=== PATIENT | male | born 1990 | race American Indian/Alaskan Native ===

== ENCOUNTER 2019-01-11 12:20 | Emergency (ER) | payer MEDICAID, MEDICARE ==
--- NOTE | 2019-01-11 12:27 | Emergency Department Report ---
Blank Doc - Documentation Documentation: This is a 28-year-old male that presents with syncopal episode and right late ral rib pain. Stated that this morning he got out of bed and had a syncopal episode. This initial assessment/diagnostic orders/clinical plan/treatment(s) is/are subject to change based on patient's health status, clinical progression and re- assessment by fellow clinical providers in the ED. Further treatment and workup at subsequent clinical providers discretion. Patient/guardians urged not to elope from the ED as their condition may be serious if not clinically assessed and managed. Initial orders include: 1- Patient sent to [facility] for further evaluation and treatment 2- labs 3- xray 4- ekg 5- Ct head
[2019-01-11 12:28] VITALS: BP 107/66
[2019-01-11] MEDS ORDERED: TORADOL IM ONE (13:18)
[2019-01-11 13:20] LABS: Basophils % (Auto) 0.2 % (0.0-1.8); Eosinophils # (Auto) 0.2 K/mm3 (0.0-0.4); Eosinophils % (Auto) 1.9 % (0.0-4.3); Hematocrit 33.6 % (35.5-45.6); Hemoglobin 11.4 gm/dl (11.8-15.2); Lymphocytes % (Auto) 24.7 % (13.4-35.0); Mean Corpuscular HGB Conc 34 % (32-34); Mean Corpuscular Volume 92 fl (84-94); Monocytes # (Auto) 0.6 K/mm3 (0.0-0.8); Monocytes % (Auto) 7.6 % (0.0-7.3); Platelet Count 285 K/mm3 (140-440); Red Blood Count 3.67 M/mm3 (3.65-5.03); Red Cell Distribution Width 14.9 % (13.2-15.2)
--- NOTE | 2019-01-11 13:20 | XRay Report ---
PROCEDURE: XR RIBS UNI W PA CHEST 3+V RT TECHNIQUE: PA chest; 4 views ribs HISTORY: right lateral rib pain wth sob COMPARISONS: None FINDINGS: Trachea midline. Heart size normal. No pneumothorax. No sizable effusion. No acute airspace disease. Mineralization unremarkable. No acute rib fracture identified. IMPRESSION: No acute pulmonary disease. No acute fracture. This document is electronically signed by Vj Romeo MD., January 11 2019 01:18:45 PM ET
--- NOTE | 2019-01-11 13:25 | Emergency Department Report ---
ED General Adult HPI - General Chief complaint: Weakness Stated complaint: PASSED OUT/PAIN IN RIBS/JOSE Time Seen by Provider: 01/11/19 12:25 Source: patient Mode of arrival: Ambulatory Limitations: No Limitations - History of Present Illness Initial comments: Patient is 28 years old male with no significant past medical history. Patient presented to the ER complaining of right sided lower chest pain after he fell last night in the bathroom. Patient stated that he came from work he slept for 2 hours then he went to the bathroom when he became dizzy. Patient stated that he is back to his baseline. Patient denied any shortness of breath but he st ated that pain increases when he takes a deep breath. Patient denied any fever or chills. Severity scale (0 -10): 10 - Related Data Allergies Allergy/AdvReac Type Severity Reaction Status Date / Time No Known Allergies Allergy Unverified 01/11/19 12:22 ED Review of Systems ROS: Stated complaint: PASSED OUT/PAIN IN RIBS/JOSE Other details as noted in HPI Comment: All other systems reviewed and negative Constitutional: denies: chills, fever Respiratory: denies: orthopnea, shortness of breath, SOB with exertion, SOB at rest, wheezing Cardiovascular: chest pain. denies: palpitations, dyspnea on exertion Gastrointestinal: denies: abdominal pain, nausea, vomiting, diarrhea, constipation, hematemesis, hematochezia Musculoskeletal: denies: back pain Neurological: denies: headache, weakness ED Past Medical Hx - Past Medical History Previous Medical History?: No - Surgical History Past Surgical History?: No - Social History Smoking Status: Current Every Day Smoker Substance Use Type: Marijuana ED Physical Exam - General Limitations: No Limitations General appearance: alert, in no apparent distress - Head Head exam: Present: atraumatic, normocephalic, normal inspection - Eye Eye exam: Present: normal appearance, PERRL - ENT ENT exam: Present: normal exam, normal orophraynx, mucous membranes moist - Neck Neck exam: Present: normal inspection, full ROM. Absent: tenderness, meningism us - Respiratory Respiratory exam: Present: normal lung sounds bilaterally, chest wall tenderness. Absent: respiratory distress, wheezes, rales, rhonchi, accessory muscle use, decreased breath sounds, prolonged expiratory - Cardiovascular Cardiovascular Exam: Present: regular rate, normal rhythm, normal heart sounds - GI/Abdominal GI/Abdominal exam: Present: soft, normal bowel sounds. Absent: distended, tenderness, guarding, rebound, rigid, organomegaly, mass, bruit, pulsatile mass - Extremities Exam Extremities exam: Present: normal inspection, full ROM, normal capillary refill. Absent: pedal edema, calf tenderness - Back Exam Back exam: Present: normal inspection, full ROM. Absent: CVA tenderness (R), CVA tenderness (L), muscle spasm, paraspinal tenderness, vertebral tenderness, rash noted - Neurological Exam Neurological exam: Present: alert, oriented X3, CN II-XII intact, normal gait, reflexes normal - Skin Skin exam: Present: warm, intact, normal color ED Course Vital Signs 01/11/19 12:26 Temperature 97.7 F Pulse Rate 63 Respiratory 18 Rate Blood Pressure 107/66 O2 Sat by Pulse 99 Oximetry ED Medical Decision Making - Lab Data Result diagrams: 01/11/19 13:07 01/11/19 13:07 - Radiology Data Radiology results: report reviewed Referring Physician: DEYANIRA SWANN Patient Name: BIMAL MONTERO Date of : 1990 Sex: Male Report Date: 2019-01-11 Report Status: Finalized Findings [facility] [address] [place] [address] Cat Scan Report Signed Patient: BIMAL MONTERO MR#: [id number] : 1990 Acct:[id number] Age/Sex: 28 / M ADM Date: 01/11/19 Loc: ED Attending Dr: Ordering Physician: DEYANIRA SWANN NP Date of Service: 01/11/19 Procedure(s): CT head/brain wo con Accession Number(s): [id number] cc: DEYANIRA SWANN NP PROCEDURE: CT HEAD/BRAIN WO CON TECHNIQUE: Axial images obtained brain without intravenous contrast. HISTORY: syncope COMPARISONS: None FINDINGS: No extra-axial fluid collection. No midline shift. No cisternal effacement. Ventricular system is unremarkable. Pruitt-white interface maintained. No parenchymal hemorrhage. No suspect hyperdensity of the middle cerebral arteries. Ethmoid sinuses and frontal sinuses demonstrate mucosal thickening. Mucous retention cyst or polyp left sphenoid sinus. No air-fluid level. Calvarium demonstrates no acute defect. IMPRESSION: No acute intracranial process.. This document is electronically signed by jV Meier MD., January 11 2019 01:51:24 PM ET Transcribed By: HJ Dictated By: VJ MEIER MD Electronically Authenticated By: VJ MEIER MD Signed Date/Time: 01/11/19 1353 DD/ 1345 TD/TT: 01/11/19 1345 - Medical Decision Making Patient is 28 years old male with no significant past medical history. Patient presented to the ER complaining of right sided lower chest pain after he fell last night in the bathroom. Patient stated that he came from work he slept for 2 hours then he went to the bathroom when he became dizzy. Patient stated that he is back to his baseline. Patient denied any shortness of breath but he stated that pain increases when he takes a deep breath. Patient denied any fever or chills. Patient received Toradol and stated that he is feeling much better now. EKG is unremarkable except for sinus bradycardia. Labs reviewed and is negative. CT brain is negative for acute findings. Chest x-ray with right rib detail is negative for acute finding. I advised the patient to follow-up with his primary care physician in the next 2-3 days and return to the ER if symptoms are not improved. Critical care attestation.: If time is entered above; I have spent that time in minutes in the direct care of this critically ill patient, excluding procedure time. ED Disposition Clinical Impression: Syncope, Contusion of chest Disposition: DC-01 TO HOME OR SELFCARE Is pt being admited?: No Condition: Stable Instructions: Syncope (ED), Contusion in Adults (ED) Referrals: TATI URIOSTEGUI MD [Primary Care Provider] - 3-5 Days
[2019-01-11 13:49] LABS: Creatine Kinase MB 1.6 ng/mL (0.0-4.0)
[2019-01-11 13:52] LABS: Alanine Aminotransferase 9 units/L (7-56); Albumin 3.9 g/dL (3.9-5); BUN/Creatinine Ratio 12; Blood Urea Nitrogen 6 mg/dL (9-20); Calcium 8.8 mg/dL (8.4-10.2); Hemolysis Index 9
--- NOTE | 2019-01-11 13:53 | Cat Scan Report ---
PROCEDURE: CT HEAD/BRAIN WO CON TECHNIQUE: Axial images obtained brain without intravenous contrast. HISTORY: syncope COMPARISONS: None FINDINGS: No extra-axial fluid collection. No midline shift. No cisternal effacement. Ventricular system is unr emarkable. Pruitt-white interface maintained. No parenchymal hemorrhage. No suspect hyperdensity of the middle cerebral arteries. Ethmoid sinuses and frontal sinuses demonstrate mucosal thickening. Mucous retention cyst or polyp left sphenoid sinus. No air-fluid level. Calvarium demonstrates no acute defect. IMPRESSION: No acute intracranial process.. This document is electronically signed by Vj Romeo MD., January 11 2019 01:51:24 PM ET
== END 2019-01-11 14:33 | disposition home or self-care (01) ==
LOC: ED 12:20
DX: S20.211A Contusion of right front wall of thorax, initial encounter (principal); R42 Dizziness and giddiness; R55 Syncope and collapse; F17.200 Nicotine dependence, unspecified, uncomplicated; F12.10 Cannabis abuse, uncomplicated; W18.2XXA Fall in (into) shower or empty bathtub, initial encounter; Y93.89 Activity, other specified; Y92.002 Bathroom of unspecified non-institutional (private) residence as the place of occurrence of the external cause; Y99.8 Other external cause status
CPT/HCPCS: 36415; 70450; 71101; 80053; 82550; 82553; 84484; 85025; 93005; 93010; 96372; 99285; J1885

== ENCOUNTER 2019-06-25 00:25 | Emergency (ER) | payer MEDICAID, OTHER ==
[2019-06-25 00:50] VITALS: BP 115/72
--- NOTE | 2019-06-25 01:30 | XRay Report ---
RIGHT SHOULDER 3 VIEWS INDICATION / CLINICAL INFORMATION: Right shoulder pain. COMPARISON: None available. FINDINGS: BONES / JOINT(S): The joint spaces are well-maintained. There is no evidence of fracture, dislocation or destructive lesion. SOFT TISSUES: No significant abnormality. ADDITIONAL FINDINGS: The visualized portion of the right lung is clear. IMPRESSION: No acute abnormality. Signer Name: Cleve Galvez MD Signed: 06/25/2019 1:25 AM Workstation Name: [id number]
[2019-06-25] MEDS ORDERED: IBUPROFEN PO ONE (01:49)
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
== END 2019-06-25 02:05 | disposition home or self-care (01) ==
LOC: ED 00:25
DX: S39.012A Strain of muscle, fascia and tendon of lower back, initial encounter (principal); S46.911A Strain of unspecified muscle, fascia and tendon at shoulder and upper arm level, right arm, initial encounter; F17.200 Nicotine dependence, unspecified, uncomplicated; V49.49XA Driver injured in collision with other motor vehicles in traffic accident, initial encounter; Y93.89 Activity, other specified; Y92.488 Other paved roadways as the place of occurrence of the external cause; Y99.8 Other external cause status